=== PATIENT | female | born 1945 | race Caucasian/White ===

== ENCOUNTER 2024-03-03 06:36 | Day surgery (SDC) | payer MEDICARE, OTHER, SELFPAY ==
[2024-03-03] VITALS (12 sets, daily range): BP systolic 163–219; BP diastolic 80–172; BMI 28.9
--- NOTE | 2024-03-03 14:27 | SUR.OPER ---
Report given to Fabio HUGO. IV still to be inserted and Fabio aware.
[2024-03-03] MEDS: APRESOLINE 5 MG IV (18:04)
== END 2024-03-03 19:07 | disposition home or self-care (01) ==
LOC: SDS 06:36
PROVIDERS: ATTENDING PHYSICIAN Internal Medicine Gastroenterology; FAMILY PHYSICIAN Internal Medicine
DX: K80.50 Calculus of bile duct without cholangitis or cholecystitis without obstruction (principal); R93.2 Abnormal findings on diagnostic imaging of liver and biliary tract; R74.8 Abnormal levels of other serum enzymes; Z90.49 Acquired absence of other specified parts of digestive tract
CPT/HCPCS: 43274; 43264; 43259; 74330; 76000; C1726; C1769; C2625

== ENCOUNTER 2024-05-05 09:43 | Day surgery (SDC) | payer MEDICARE, OTHER, SELFPAY ==
[2024-05-05 11:20] VITALS: BMI 30.3
[2024-05-05 11:25] VITALS: BP 178/85
[2024-05-05 11:37] VITALS: BMI 30.3
[2024-05-05 13:36] VITALS: BP 173/84
[2024-05-05 13:45] VITALS: BP 171/77
[2024-05-05 14:00] VITALS: BP 189/78
== END 2024-05-05 14:15 | disposition home or self-care (01) ==
LOC: SDS 09:43
PROVIDERS: ATTENDING PHYSICIAN Internal Medicine Gastroenterology
DX: T85.590A Other mechanical complication of bile duct prosthesis, initial encounter (principal); K80.50 Calculus of bile duct without cholangitis or cholecystitis without obstruction; Y82.8 Other medical devices associated with adverse incidents
CPT/HCPCS: 43264; 43275; 43259; 74330; 76000; C1769

== ENCOUNTER → 2024-09-19 07:18 | Outpatient (REF) | payer MEDICARE, OTHER, SELFPAY | LOC: PAVMRI 07:18 | PROVIDERS: ATTENDING PHYSICIAN Internal Medicine Gastroenterology; FAMILY PHYSICIAN Internal Medicine | DX: K86.89 Other specified diseases of pancreas (principal) | CPT/HCPCS: 74183; A9575 ==

== ENCOUNTER → 2025-04-18 09:17 | Outpatient (REF) | payer MEDICARE, OTHER, SELFPAY | LOC: PAVMRI 09:17 | PROVIDERS: ATTENDING PHYSICIAN Internal Medicine Gastroenterology; FAMILY PHYSICIAN Registered Nurse | DX: K86.89 Other specified diseases of pancreas (principal) | CPT/HCPCS: 74183; A9575 ==